=== PATIENT | female | born 1960 | race Caucasian/White ===

== ENCOUNTER → 2023-08-29 13:27 | Outpatient (REF) | payer BC, SELFPAY | LOC: RAD 13:27 | PROVIDERS: ATTENDING PHYSICIAN Internal Medicine | DX: M25.561 Pain in right knee (principal); M79.661 Pain in right lower leg | CPT/HCPCS: 73564 ==

== ENCOUNTER → 2023-09-11 09:58 | Outpatient (REF) | payer SELFPAY | LOC: HWRAD 09:58 | PROVIDERS: ATTENDING PHYSICIAN Internal Medicine Cardiovascular Disease; FAMILY PHYSICIAN Internal Medicine | DX: R03.0 Elevated blood-pressure reading, without diagnosis of hypertension (principal); Z82.49 Family history of ischemic heart disease and other diseases of the circulatory system; E78.5 Hyperlipidemia, unspecified | CPT/HCPCS: 75571 ==

== ENCOUNTER → 2023-09-19 06:46 | Outpatient (REF) | payer BC, SELFPAY | LOC: MRI 3T 06:46 | PROVIDERS: ATTENDING PHYSICIAN Internal Medicine | DX: S89.91XA Unspecified injury of right lower leg, initial encounter (principal) | CPT/HCPCS: 73721 ==

== ENCOUNTER → 2023-09-23 10:59 | Outpatient (REF) | payer BC, SELFPAY | LOC: HWRCS 10:59 | PROVIDERS: ATTENDING PHYSICIAN Internal Medicine Cardiovascular Disease; FAMILY PHYSICIAN Internal Medicine | DX: R03.0 Elevated blood-pressure reading, without diagnosis of hypertension (principal); Z82.49 Family history of ischemic heart disease and other diseases of the circulatory system; E78.5 Hyperlipidemia, unspecified | CPT/HCPCS: 93306 ==

== ENCOUNTER → 2024-01-14 08:02 | Outpatient (REF) | payer BC, SELFPAY | LOC: MRI 08:02 | PROVIDERS: ATTENDING PHYSICIAN Otolaryngology; FAMILY PHYSICIAN Internal Medicine | DX: H90.42 Sensorineural hearing loss, unilateral, left ear, with unrestricted hearing on the contralateral side (principal); H91.22 Sudden idiopathic hearing loss, left ear | CPT/HCPCS: 70553; A9575 ==

== ENCOUNTER → 2024-05-21 12:34 | Outpatient (REF) | payer BC, SELFPAY | LOC: WDC 12:34 | PROVIDERS: ATTENDING PHYSICIAN Obstetrics & Gynecology; FAMILY PHYSICIAN Internal Medicine | DX: Z12.31 Encounter for screening mammogram for malignant neoplasm of breast (principal) | CPT/HCPCS: 77063; 77067 ==

== ENCOUNTER 2024-06-30 22:44 | Emergency (ER) | payer BC, SELFPAY ==
[2024-06-30 22:49] VITALS: BP 190/106
--- NOTE | 2024-06-30 22:58 | ED.GENMED ---
History of Present Illness
General
Chief Complaint: Heart Rate Problem
Time Seen by Provider: 06/30/24 22:58
History of Present Illness
History of Present Illness:
TIME OF INITIAL ENCOUNTER: 11 PM
HPI: Patient came in because she got an alert from her Apple Watch that she was in rapid A-fib. Her , who is an IR doctor at [facility], printed this rhythm strip out which showed that she was in A-fib with a rate of 149. She has been seen
by Dr. Melania Montes in the past however she has no known cardiac disease. Earlier today when she was coming in from working outside, she had a 'cold' sensation in her chest. She feels somewhat anxious currently but does not sense any
palpitations.
EXAM:
GENERAL: Well appearing in no distress, she is hypertensive and tachycardic
HEENT: Moist oral mucosa
CARDIOVASCULAR: No murmurs, normal heart rate, regular rhythm, No chest wall tenderness
PULMONARY: No respiratory distress, breath sounds are clear and equal
ABDOMEN: Soft with no peritoneal signs, no tenderness
NEUROLOGIC: Excellent strength all extremities, no coordination deficits
PSYCHIATRIC: Appropriate mental status, normal insight and judgement, appears slightly anxious
EXTREMITIES: Nontender, no edema, moves all extremities equally
SKIN: No rash, no lesions
NUMBER AND COMPLEXITY OF PROBLEMS ADDRESSED AT THE ENCOUNTER
� Chronic conditions affecting care: No significant past medical history
� Acute Exacerbation and/or Progression of Chronic Illness: This is an acute problem
� Differential Diagnosis includes: Paroxysmal atrial fibrillation, thyroid disease, electrolyte abnormality
AMOUNT AND/OR COMPLEXITY OF DATA TO BE REVIEWED AND ANALYZED
� I performed an independent evaluation of and my interpretation is:
EKG: Sinus 121 versus atrial tachycardia with 2-1 conduction, incomplete right bundle branch block
CT:
X-rays:
Laboratory Studies: CBC and chemistries including magnesium unremarkable, troponin less than 0.012, TSH is elevated at 9.4 but does not fit the symptoms of tachycardia
Other:
� Review of other/old records: The patient had a negative stress test in October 2021
� Clinical information was obtained by an independent historian: I spoke to the at bedside
� Prescriptions/Medications Considered but not given:
� Further testing considered but not performed:
RISK OF COMPLICATIONS AND/OR MORBIDITY OR MORTALITY OF PATIENT MANAGEMENT
� Social determinants of health affecting care: Lives at home
� Discussion with other providers: Discussed case with Dr. Sy who recommends anticoagulation given her [id number] score
� Escalation of care including admission/observation vs risk of discharge considered: The patient was given IV fluids. With fluids, her heart rate has improved. I considered rate reduction however the patient declines.
ANY OTHER UPDATES:
The patient has remained in sinus throughout her stay in the emergency department. Will give prescription for Eliquis as well as low-dose beta-jesús and she is also to follow-up with Dr. Montes.
Past History
Past History
ED Past Medical History: None
ED Past Surgical History: Orthopedic
Social History
Tobacco: Non-smoker
Personal:
Living: with family
Employment: Employed
Phy Exam
Physical Exam
Physical Exam:
See HPI
Course
Orders/Labs/Results
Orders:
Orders
06/30/24 22:45
ECG [Electrocardiogram (*1)] Urgent
Reason for Study: Atrial Fibrillation
EKG- Treatment ONCE
06/30/24 23:00
0.9% Sodium Chloride 1000 ml [Nss] 1,000 ml IV BOLUS
06/30/24 23:12
Complete Blood Count/With Diff Urgent
Comprehensive Metabolic Panel Urgent
Free T4 Urgent
Magnesium Urgent
TSH Reflex To Free T4 Urgent
Troponin I Urgent
Abnormal Lab Results
06/30/24
23:12
MCH 31.4 H pg
(27.0-31.0)
MPV 10.6 H fL
(7.4-10.4)
Glucose 121 H mg/dl
(70-99)
TSH (Reflex) 9.37 H uIU/ml
(0.47-4.68)
06/30/24 23:12
06/30/24 23:12
Vital Signs
Initial and Last Documented VS:
Initial Vital Signs
Temp Pulse Resp BP Pulse Ox
36.8 C 126 20 190/106 100
06/30/24 22:49 06/30/24 22:49 06/30/24 22:49 06/30/24 22:49 06/30/24 22:49
Last Documented Vital Signs
Temp Pulse Resp BP Pulse Ox
36.8 C 100 15 147/90 98
06/30/24 22:49 07/01/24 00:45 07/01/24 00:45 07/01/24 00:35 07/01/24 00:45
*Critical Care Note
Total Time (30-74mins, 75-104mins- exclusive of procedures): Not Applicable
ED Attending Note
-
Portions of this chart may have been created with voice recognition software.� Occasional wrong word or��sound alike� substitutions may have occurred due to the inherent limitations of voice recognition software.
Discharge Plan
Departure
Patient Disposition: Home (Routine Discharge)
Date of Disposition: 07/01/24
Time of Disposition: 00:59
Patient with high blood pressure during this ER visit?: Yes
Discharge Problem:
Atrial fibrillation
Instructions: Atrial Fibrillation (DC), BLOOD PRESSURE
Prescriptions:
New
Eliquis 5 mg tablet
5 mg PO BID Qty: 60 0RF
metoprolol succinate 25 mg tablet extended release 24 hr
12.5 mg PO DAILY Qty: 15 0RF
No Action
ofloxacin [Ocuflox] 10 ML drops
1 drp RIGHT EYE Q4HWA Qty: 10 0RF
Referrals:
Yamil Frausto MD [Family Provider] -
Melania Montes MD [Active] - Follow up in 2-3 days
Activity Restrictions/Additional Instructions:
I sent a prescription for very low-dose beta-jesús. As you are female and age 64, you are at higher risk of stroke because of atrial fibrillation. I am sending a prescription for Eliquis to your pharmacy. Follow-up with Dr. Montes. Return
here if worse or other concerns.
Interventions
Interventions:
*Risk Screen - Suicide Last Done: 06/30/24 22:49
*Neglect/Abuse Screening Last Done: 06/30/24 22:49
ED- Cardiac Assessment Last Done: 06/30/24 23:15
ED- Pulmonary Assessment Last Done: 06/30/24 23:15
Discharge Date and Time
Print Language: TRISTANIAN
[2024-06-30 23:05] VITALS: BP 167/105
[2024-06-30] MEDS: NSS 1000 IV (23:15)
[2024-06-30 23:34] LABS: % Basophils 0.9 % (0-2); % Eosinophils 2.1 % (0-6); % Immature Granulocytes 0.2 % (0-0.5); % Monocytes 7.7 % (1.7-9.3); % Neutrophils 51.1 % (42.2-75.2); Absolute Basophils 0.1 10^3/uL (0-0.2); Absolute Eosinophils 0.1 10^3/uL (0-0.7); Absolute Lymphocytes 2.5 10^3/uL (1.2-3.4); Absolute Monocytes 0.5 10^3/uL (0.1-0.6); Absolute Neutrophils 3.4 10^3/uL (1.4-6.5); Hematocrit 40.6 % (37.0-47.0); Hemoglobin 13.6 g/dL (12.0-16.0); Mean Corp Hgb Conc. 33.5 g/dL (33.0-37.0); Mean Corpuscular Hgb 31.4 pg (27.0-31.0); Mean Corpuscular Volume 93.8 fL (81.0-99.0); Mean Platelet Volume 10.6 fL (7.4-10.4); Nucleated Red Blood Cells % 0 %; Platelet Count 270 10^3/uL (130-400); Red Blood Cell Count 4.33 10^6/uL (4.20-5.40); Red Cell Dist. Width 12.7 % (11.5-14.5); White Blood Cell Count 6.6 10^3/uL (4.8-10.8)
[2024-06-30 23:41] VITALS: BP 167/94
[2024-06-30 23:51] LABS: Troponin I < 0.012 ng/ml
[2024-06-30 23:55] LABS: ALT (SGPT) 21 U/L (0-35); AST (SGOT) 26 U/L (14-36); Alkaline Phosphatase 78 U/L (38-126); Blood Urea Nitrogen 15 mg/dl (7-17); Carbon Dioxide 26 mmol/L (22-30); Chloride 101 mmol/L (98-107); Glucose 121 mg/dl (70-99); Potassium 3.6 mmol/L (3.5-5.1); Sodium 138 mmol/L (135-145); Total Bilirubin 0.6 mg/dl (0.2-1.3); Total Protein 7.7 g/dl (6.3-8.2); eGFR > 60.00
[2024-06-30 23:58] VITALS: BP 156/94
[2024-07-01] VITALS: BP 149/99
[2024-07-01 00:25] LABS: TSH Reflex To Free T4 9.37 uIU/ml (0.47-4.68)
[2024-07-01 00:35] VITALS: BP 147/90
[2024-07-01 01:00] VITALS: BP 144/84
[2024-07-01 02:32] LABS: Albumin 4.8 g/dl (3.5-5.0)
== END 2024-07-01 01:19 | disposition home or self-care (01) ==
LOC: EMR 22:44
PROVIDERS: EMERGENCY PHYSICIAN Emergency Medicine; FAMILY PHYSICIAN Internal Medicine
DX: I48.91 Unspecified atrial fibrillation (principal)
CPT/HCPCS: 96360; 99284; 80053; 83735; 84439; 84443; 84484; 85025; 93005

== ENCOUNTER → 2024-07-18 11:23 | Outpatient (REF) | payer BC, SELFPAY ==
[2024-07-18 13:46] LABS: Free T4 0.98 ng/dl (0.78-2.19)
[2024-07-18 14:00] LABS: TSH 2.55 uIU/ml (0.47-4.68)
[2024-07-20 11:42] LABS: Thyroid Peroxidase Ab (TPO) 198.9 IU/mL (0.0-9.0)
== END ==
LOC: REG 11:23
PROVIDERS: ATTENDING PHYSICIAN Internal Medicine
DX: R79.89 Other specified abnormal findings of blood chemistry (principal); I49.8 Other specified cardiac arrhythmias
CPT/HCPCS: 36415; 84439; 84443; 86376

== ENCOUNTER 2024-08-28 06:20 | Day surgery (SDC) | payer BC, SELFPAY | END 2024-08-28 10:02 | disposition home or self-care (01) | LOC: GI 06:20 | PROVIDERS: ATTENDING PHYSICIAN Specialist; FAMILY PHYSICIAN Internal Medicine | DX: R10.13 Epigastric pain (principal); K22.89 Other specified disease of esophagus; K31.7 Polyp of stomach and duodenum; K44.9 Diaphragmatic hernia without obstruction or gangrene; K22.70 Barrett's esophagus without dysplasia; K31.89 Other diseases of stomach and duodenum | CPT/HCPCS: 43239; 88305 ==

== ENCOUNTER → 2024-10-05 10:21 | Outpatient (REF) | payer BC, SELFPAY | LOC: HWRCS 10:21 | PROVIDERS: ATTENDING PHYSICIAN Internal Medicine Cardiovascular Disease; FAMILY PHYSICIAN Internal Medicine | DX: I34.0 Nonrheumatic mitral (valve) insufficiency (principal) | CPT/HCPCS: 93306 ==

== ENCOUNTER → 2024-10-09 15:07 | Outpatient (REF) | payer BC, SELFPAY ==
[2024-10-09 16:41] LABS: Free T3 3.14 pg/ml (2.77-5.27); Free T4 1.01 ng/dl (0.78-2.19)
[2024-10-09 16:55] LABS: TSH 1.36 uIU/ml (0.47-4.68)
== END ==
LOC: REG 15:07
PROVIDERS: ATTENDING PHYSICIAN Internal Medicine; OTHER PHYSICIAN Internal Medicine Cardiovascular Disease; OTHER PHYSICIAN Specialist
DX: E06.3 Autoimmune thyroiditis (principal)
CPT/HCPCS: 36415; 84439; 84443; 84481

== ENCOUNTER 2024-12-01 06:26 | Day surgery (SDC) | payer BC, SELFPAY | END 2024-12-01 11:45 | disposition home or self-care (01) | LOC: GI 06:26 | PROVIDERS: ATTENDING PHYSICIAN Specialist | DX: K22.70 Barrett's esophagus without dysplasia (principal); K31.7 Polyp of stomach and duodenum; K22.89 Other specified disease of esophagus | CPT/HCPCS: 43251; 43239; 88305 ==

== ENCOUNTER → 2025-01-15 08:20 | Outpatient (REF) | payer BC, SELFPAY ==
[2025-01-15 09:40] LABS: Hematocrit 42.2 % (37.0-47.0); Hemoglobin 13.8 g/dL (12.0-16.0); Mean Corp Hgb Conc. 32.7 g/dL (33.0-37.0); Mean Corpuscular Volume 95.0 fL (81.0-99.0); Nucleated Red Blood Cells % 0 %; Platelet Count 261 10^3/uL (130-400); Red Cell Dist. Width 12.7 % (11.5-14.5)
[2025-01-15 10:09] LABS: Urine Character Clear (Clear)
[2025-01-15 10:16] LABS: ALT (SGPT) 23 U/L (0-35); AST (SGOT) 22 U/L (14-36); Albumin 4.8 g/dl (3.5-5.0); Alkaline Phosphatase 78 U/L (38-126); Blood Urea Nitrogen 18 mg/dl (7-17); Calcium 9.8 mg/dl (8.4-10.2); Carbon Dioxide 28 mmol/L (22-30); Chloride 103 mmol/L (98-107); Glucose 94 mg/dl (70-99); HDL Cholesterol 67 mg/dl; LDL Cholesterol, Calculated 130 mg/dl; Potassium 4.5 mmol/L (3.5-5.1); Sodium 137 mmol/L (135-145); Total Protein 7.4 g/dl (6.3-8.2); Very Low Density Lipoprotein 20 mg/dl (0-30); eGFR > 60.00
[2025-01-15 10:28] LABS: Urine Red Blood Cell 0-2 /HPF (0-2); Urine Squamous Cell 0-2 /LPF (Few); Urine White Cell 0-2 /HPF (0-5)
[2025-01-15 10:46] LABS: Vitamin D, 25-OH*** 28.2 ng/mL (30-80)
[2025-01-15 11:00] LABS: TSH 2.36 uIU/ml (0.47-4.68)
== END ==
LOC: REG 08:20
PROVIDERS: ATTENDING PHYSICIAN Internal Medicine
DX: E78.00 Pure hypercholesterolemia, unspecified (principal); M50.30 Other cervical disc degeneration, unspecified cervical region; Z79.899 Other long term (current) drug therapy; Z00.00 Encounter for general adult medical examination without abnormal findings
CPT/HCPCS: 36415; 80053; 80061; 81003; 81015; 82306; 84439; 84443; 85025

== ENCOUNTER → 2025-02-08 16:26 | Outpatient (REF) | payer BC, SELFPAY ==
[2025-02-08 17:43] LABS: C-Reactive Protein < 5.00 mg/L (0.0-10.00)
[2025-02-11 06:07] LABS: ANA, IgG Reflex to HEp-2 None Detected (None Detected)
== END ==
LOC: REG 16:26
PROVIDERS: ATTENDING PHYSICIAN Internal Medicine
DX: M25.50 Pain in unspecified joint (principal); T50.Z Poisoning by, adverse effect of and underdosing of other vaccines and biological substances
CPT/HCPCS: 36415; 85652; 86038; 86140; 86430; 86618; 87468; 87484; 87798

== ENCOUNTER → 2025-03-15 10:34 | Outpatient (REF) | payer BC, SELFPAY | LOC: MRI 3T 10:34 | PROVIDERS: ATTENDING PHYSICIAN Ophthalmology; FAMILY PHYSICIAN Internal Medicine | DX: G43.B0 Ophthalmoplegic migraine, not intractable (principal) | CPT/HCPCS: 70553; A9575 ==

== ENCOUNTER → 2025-03-26 08:15 | Outpatient (REF) | payer BC, SELFPAY | LOC: REG 08:15 | PROVIDERS: ATTENDING PHYSICIAN Internal Medicine; REFERRING PHYSICIAN Internal Medicine Endocrinology, Diabetes & Metabolism | DX: D35.2 Benign neoplasm of pituitary gland (principal) | CPT/HCPCS: 36415; 84146 ==